=== PATIENT | female | born 1995 | race Caucasian/White ===

== ENCOUNTER 2020-07-16 11:59 | Emergency (ER) | payer OTHER ==
[~2020-07-16] VITALS: Ht 152.4 cm; Wt 74.4 kg
[2020-07-16 13:09] VITALS: BP 114/72
== END 2020-07-16 13:09 | disposition home or self-care (01) ==
LOC: ED 11:59
DX: L60.0 Ingrowing nail (principal)
CPT/HCPCS: J2001

== ENCOUNTER 2020-07-19 11:28 | Emergency (ER) | payer OTHER ==
[~2020-07-19] VITALS: Ht 152.4 cm; Wt 75.3 kg
[2020-07-19 11:30] VITALS: BP 111/76; Ht 152.4 cm; Wt 75.3 kg
== END 2020-07-19 12:59 | disposition home or self-care (01) ==
LOC: ED 11:28
DX: L60.0 Ingrowing nail (principal)
CPT/HCPCS: J7030